=== PATIENT | female | born 1955 | race Caucasian/White ===

== ENCOUNTER 2016-08-02 00:06 | Emergency (ER) | payer OTHER ==
[~2016-08-02] VITALS: Ht 157.5 cm; Wt 48.5 kg
[~2016-08-02 00:06] MED LIST: AUGMENTIN 500-1 EACH ORAL; IBUPROFEN400 MG ORAL; IBUPROFEN600 MG ORAL; NORCO 5-325 TA1 EACH ORAL; ZYRTEC10 MG ORAL
[2016-08-02] MEDS ORDERED: ROBAXIN-750750 MG PO (00:29)
[2016-08-02] MEDS ORDERED: CYCLOBENZAPRINE10 MG ORAL (00:29)
[2016-08-02] MEDS ORDERED: IBUPROFEN600 MG ORAL (00:29)
[2016-08-02] MEDS ORDERED: Methocarbamol 750mg tab ORAL ONE (00:30)
[2016-08-02] MEDS ORDERED: Ketorolac 60mg Inj IM ONE (00:30)
[2016-08-02 00:38] VITALS: BP 132/90
[2016-08-02 00:50] LABS: APPEARANCE,URINE CLEAR; KETONES,URINE NEGATIVE (NEGATIVE); LEUKOCYTE ESTERASE ,URINE 1+ (NEGATIVE); NITRITE,URINE NEGATIVE (NEGATIVE); PH,URINE 6 (4.5-8.0); PROTEIN,URINE NEGATIVE (NEGATIVE); UROBILINOGEN,URINE NORMAL MG/DL (0.0-1.0)
[2016-08-02 01:38] LABS: BACTERIA,URINE FEW /HPF; SQUAMOUS EPITHELIAL CELL,UR FEW /LPF (NONE/OCC); TRANSITIONAL EPI CELLS,URINE FEW /LPF
--- NOTE | 2016-08-02 04:58 | Emergency Room Report ---
History of Present Illness General Chief Complaint: Back Pain-No Injury Source: Patient Present Illness HPI 60YO F with 2-3 days of upper/lower left back pain that started after patient "lifted and moved by med." Taking OTC tylenol without improvement. Pain worse with movement, better lying flat. Denies assoc lower extremity weakness, urinary /fecal incontinence, fever/chills, dysuria, history of IVDU or malignancy. Denies urinary complaints. Allergies: Coded Allergies: Dust (Verified Allergy, Unknown, 08/02/16) PERFUME (Verified Allergy, Unknown, 08/02/16) Uncoded Allergies: PEANUTS (Allergy, Unknown, 08/02/16) Patient History Past Medical History: none Past Surgical History: none Pertinent Family History: none Social History: Denies: alcohol use, drug use, smoking Now: No Immunizations: UTD Reviewed Nursing Documentation: PMH: Agreed, PSxH: Agreed Nursing Documentation-PMH Past Medical History: No Stated History Review of Systems All Other Systems: negative except mentioned in HPI Physical Exam Vital Signs Date Time Temp Pulse Resp B/P Pulse Ox O2 Delivery O2 Flow Rate FiO2 08/02/16 00:07 97.5 75 16 132/90 100 Room Air Sp02 EP Interpretation: reviewed, normal General Appearance: normal inspection, well appearing, no apparent distress, alert Head: normocephalic, atraumatic Eyes: bilateral eye EOMI, bilateral eye PERRL ENT: normal ENT inspection, hearing grossly normal, normal voice Neck: normal inspection, full range of motion, supple, no bony tend Respiratory: normal inspection, lungs clear, normal breath sounds, no respiratory distress, no retraction, no wheezing Cardiovascular #1: regular rate, rhythm, no edema Gastrointestinal: normal inspection, normal bowel sounds, non tender, soft, no guarding, no hernia Genitourinary: no CVA tenderness Musculoskeletal: normal inspection, back normal, normal range of motion, Cleopatra' s Sign negative, other - Lower/upper left paravertebral area with spasm, tightness. No midline ttp or masses Neurologic: normal inspection, alert, oriented x3, responsive, inspector automatic typewriter III-XII nml as tested, motor strength/tone normal, speech normal Psychiatric: normal inspection, judgement/insight normal, mood/affect normal Skin: normal inspection, normal color, no rash Medical Decision Making Diagnostic Impression: Primary Impression: Back pain Qualified Codes: M54.5 - Low back pain ER Course A: low suspicion for cord compression given well appearance, left upper/lower paravertebral ttp, no focal neuro deficits, absence of midline ttp/masses and pain worse with movement with known exacerbating activity Analgesia provided in ED Rx Ibuprofen, Robaxin, ICE/HEAT, PMD followup Last Vital Signs Date Time Temp Pulse Resp B/P Pulse Ox O2 Delivery O2 Flow Rate FiO2 08/02/16 00:38 97.5 75 16 132/90 100 Room Air Status: improved Disposition: HOME, SELF-CARE Condition: Improved Scripts Cyclobenzaprine Hcl* (FLEXERIL*) 10 Mg Tablet 10 MG ORAL QHS Y for back pain, #30 TAB Prov: YARELI MAHONEY M.D. 08/02/16 Methocarbamol* (ROBAXIN-750*) 750 Mg Tablet 750 MG PO TID for back pain, #30 TAB 0 Refills Prov: YARELI MAHONEY M.D. 08/02/16 Ibuprofen* (MOTRIN*) 600 Mg Tablet 600 MG ORAL THREE TIMES A DAY for back pain for 7 Days, #30 TAB 0 Refills Prov: YARELI MAHONEY M.D. 08/02/16 Referrals: NOT CHOSEN [facility]/,REFERRING Patient Instructions: Back Pain, Adult Additional Instructions: - Take ibuprofen with Robaxin every 8 hours with food for back pain - Follow up with your primary care doctor in 1 week if no improvement - At night, take 1 flexeril for back pain to help you sleep but DO NOT take flexeril during the day before driving YARELI MAHONEY M.D. Aug 02, 2016 04:58
== END 2016-08-02 00:40 | disposition home or self-care (01) ==
LOC: EMR 00:20
DX: M54.5 Low back pain (principal); Z91.010 Allergy to peanuts; Z91.048 Other nonmedicinal substance allergy status
CPT/HCPCS: 81003; 96372; 99284

== ENCOUNTER 2017-02-08 21:49 | Emergency (ER) | payer OTHER ==
[~2017-02-08] VITALS: Ht 157.5 cm; Wt 47.2 kg
[~2017-02-08 21:49] MED LIST changes: +CYCLOBENZAPRINE10 MG ORAL; +ROBAXIN-750750 MG PO
[2017-02-08 22:17] VITALS: BP 123/79
[2017-02-08] MEDS ORDERED: Tylenol #3 tab (300mg/30mg) ORAL ONE (22:30)
--- NOTE | 2017-02-08 22:39 | Emergency Room Report ---
History of Present Illness General Chief Complaint: Pain Source: Patient Present Illness HPI This is a 61-year-old female with no significant past medical history. She presents with chief complaint of headache in pain. Pain is over the mastoid area. His been on and off for the last couple weeks. No nausea no vomiting. Usually get better with ibuprofen. Never had any study. Never had this problem before. No weight loss. No focal deficit. Worse with palpation. Worse with certain movement. Pain is 8/10. Sharp in nature. Allergies: Coded Allergies: Dust (Verified Allergy, Unknown, 08/02/16) PERFUME (Verified Allergy, Unknown, 08/02/16) Uncoded Allergies: PEANUTS (Allergy, Unknown, 08/02/16) Patient History Past Medical History: see triage record, old chart reviewed Past Surgical History: other Pertinent Family History: none Social History: Denies: smoking Now: No Immunizations: other Reviewed Nursing Documentation: PMH: Agreed, PSxH: Agreed Nursing Documentation-PMH Past Medical History: No Stated History Review of Systems Eye: Denies: eye pain, blurred vision ENT: Denies: ear pain, nose congestion, throat swelling Respiratory: Denies: cough, shortness of breath Cardiovascular: Denies: chest pain, palpitations Gastrointestinal: Denies: abdominal pain, diarrhea, nausea, vomiting Musculoskeletal: Denies: back pain, joint pain Skin: Denies: rash Neurological: Reports: headache, Denies: numbness Endocrine: Denies: increased thirst, increased urine Hematologic/Lymphatic: Denies: easy bruising All Other Systems: negative except mentioned in HPI Physical Exam Vital Signs Date Time Temp Pulse Resp B/P (MAP) Pulse Ox O2 Delivery O2 Flow Rate FiO2 02/08/17 22:00 97.9 69 18 123/79 99 Room Air vitals normal Sp02 EP Interpretation: reviewed, normal General Appearance: well appearing, no apparent distress, alert Head: normocephalic, atraumatic, other - Tenderness over the left mastoid area and occiput. No mass. No redness. Eyes: bilateral eye PERRL, bilateral eye EOMI ENT: hearing grossly normal, normal pharynx Neck: full range of motion, supple, no meningismus Respiratory: chest non-tender, lungs clear, normal breath sounds Cardiovascular #1: regular rate, rhythm, no murmur Gastrointestinal: normal bowel sounds, non tender, no mass, no organomegaly, no bruit, non-distended Musculoskeletal: back normal, gait/station normal, normal range of motion Psychiatric: mood/affect normal Skin: warm/dry Medical Decision Making Diagnostic Impression: Primary Impression: Headache Qualified Codes: R51 - Headache ER Course Patient with headache. No evidence of abscess or infection. CT negative for bleed or fracture. No evidence of CVA. We'll discharge home. Last Vital Signs Date Time Temp Pulse Resp B/P (MAP) Pulse Ox O2 Delivery O2 Flow Rate FiO2 02/08/17 22:17 97.9 69 18 123/79 99 Room Air Status: improved Disposition: HOME, SELF-CARE Condition: Stable Scripts Tramadol Hcl* (ULTRAM*) 50 Mg Tablet 50 MG ORAL BID Y for For Pain, #20 TAB 0 Refills Prov: GISELLE BAHENA M.D. 02/08/17 Referrals: [facility],REFERRING (PCP) Additional Instructions: Followup with your DrStephy in 7 days. Return if worse. GISELLE BAHENA M.D. Feb 08, 2017 22:39
[2017-02-08] MEDS ORDERED: TRAMADOL HCL50 MG ORAL (23:00)
[2017-02-08 23:07] VITALS: BP 123/79
--- NOTE | 2017-02-09 09:15 | Diagnostic Imaging Report ---
Indication: PAIN attain Technique: Continuous helical CT scanning of the head was performed without intravenous contrast material. Axial and coronal 5 mm sections were generated. Radiation dose was minimized using automated exposure control Dose: Total Dose Length Product - DLP [address] Dose Index - CTDIvol(s) 70.38 mGy. Comparison: None Findings: The ventricular system is normal in size and configuration. There is no shift of midline structures. No abnormal extra-axial fluid collections are noted. There is no evidence of intracerebral bleeding. No other abnormal high or low density areas are noted within the brain. The calvarium is intact. The visualized orbits and sinuses are unremarkable. The mastoids are clear Impression: Normal CT scan of the head without contrast material. This agrees with the preliminary interpretation provided overnight by [facility] teleradiology service. The CT scanner at [facility] is accredited by the [employer] and the scans are performed using protocols designed to limit radiation exposure to as low as reasonably achievable to attain images of sufficient resolution adequate for diagnostic evaluation.
== END 2017-02-08 23:07 | disposition home or self-care (01) ==
LOC: EMR 22:19
DX: R51 Headache (principal); Z91.010 Allergy to peanuts; Z91.09 Other allergy status, other than to drugs and biological substances
CPT/HCPCS: 70450; 99283

== ENCOUNTER 2020-03-03 20:09 | Emergency (ER) | payer OTHER ==
[~2020-03-03] VITALS: Ht 157.5 cm; Wt 48.1 kg
[~2020-03-03 20:09] MED LIST changes: +TRAMADOL HCL50 MG ORAL
--- NOTE | 2020-03-03 20:24 | NUR ---
ED Nurse Note: pt walked into the ED from home s/p mechanical fall yesterday, pt now reports pain on right elbow and left knee. Denies head trauma, denies numbness, tingling. Pt is awake alert and oriented. Vitals stable as documented.
[2020-03-03 20:26] VITALS: BP 129/79
--- NOTE | 2020-03-03 20:28 | Emergency Room Report ---
History of Present Illness General Chief Complaint: Multiple Trauma/Fall Source: Patient Present Illness HPI Disclaimer: Please note that this report is being documented using DRAGON technology. This can lead to erroneous entry secondary to incorrect interpretation by the dictating instrument. HPI: 64-year-old [id number] female presents for evaluation of elbow and forearm pain after a fall. Yesterday she tripped and fell on the sidewalk falling onto her right elbow. Noted pain and swelling and limited range of motion in the right elbow. Notes some tenseness in the right shoulder but no pain and full range of motion. No head or neck injury. Denies pain in the wrist or hand. Does not take anticoagulants. She fell on her left knee but states this is all better now. Took Tylenol. No other injuries reported. PMH: Reviewed PSH: Reviewed Allergies: Reviewed Social Hx: Reviewed Allergies: Coded Allergies: Dust (Verified Allergy, Unknown, 08/02/16) PERFUME (Verified Allergy, Unknown, 08/02/16) Uncoded Allergies: PEANUTS (Allergy, Unknown, 08/02/16) COVID-19 Screening Contact w/high risk pt: No Experienced COVID-19 symptoms?: No COVID-19 Testing performed DICTAPHONE OPERATOR: No Nursing Documentation-PMH Past Medical History: No Stated History Review of Systems All Other Systems: negative except mentioned in HPI Physical Exam Vital Signs Date Time Temp Pulse Resp B/P (MAP) Pulse Ox O2 Delivery O2 Flow Rate FiO2 03/03/20 20:18 98.4 60 16 129/79 (96) 98 Room Air General: Awake and alert, no acute distress HEENT: NC/AT. EOMI. Resp: Normal work of breathing Skin: Intact. No abrasions, laceration or rash over the exposed skin MSK: Normal tone and bulk. Moving all extremities. There is tenderness palpation of moderate edema over the proximal ulna and elbow. Limited range of motion though still able to flex and extend to some degree. No tenderness in the wrist, hand or digits. No tenderness anatomic snuffbox. Full range of motion of the left shoulder. Mild tenderness palpation over the trapezius and right paraspinal regions in the cervical spine but no midline tenderness in the cervical spine or thoracic spine. Neuro: Awake and alert. Mentating appropriately Medical Decision Making Diagnostic Impression: Primary Impression: Elbow contusion ER Course There is a 64-year-old female presenting for evaluation of right elbow pain and swelling after a fall from standing yesterday. There was no head injury or loss of consciousness but on concern for fracture and x-rays were obtained. No obvious fracture, dislocation identified. No posterior fat pad or other concerning findings. She has small abrasion over the elbow that was cleaned and bandaged already. Tetanus was updated 2 years ago. Right arm placed in sling for comfort. Also appears she suffered a strain of the trapezius on the right side. No indication for acute imaging of the head or spine at this time. She is well-appearing stable for outpatient follow-up. Prescribed lidocaine patches, Motrin, Robaxin. She will follow-up with PMD and return with new or worsening symptoms. She understands and agrees with this treatment plan. Other X-Ray Diagnostic Results Other X-Ray Diagnostic Results #1: X-Ray ordered: Right elbow # of Views/Limited Vs Complete: 3 View Indication: Pain EP Interpretation: Yes Interpretation: no dislocation, no fractures, other - Soft tissue swelling, no obvious fracture, no dislocation, no fat pad sign Impression: Other - Soft tissue swelling Electronically Signed by: Electronically signed by Dr. Akbar Matt Other X-Ray Diagnostic Results #2: X-Ray ordered: Right forearm # of Views/Limited Vs Complete: Complete Indication: Pain EP Interpretation: Yes Interpretation: no dislocation, no fractures, other - Soft tissue swelling Impression: Other - Soft tissue swelling elbow, no fracture Electronically Signed by: Electronically signed by Dr. Akbar Matt Last Vital Signs Date Time Temp Pulse Resp B/P (MAP) Pulse Ox O2 Delivery O2 Flow Rate FiO2 03/03/20 20:18 98.4 60 16 129/79 (96) 98 Room Air Disposition: HOME, SELF-CARE Condition: Stable Scripts Lidocaine Patch* (Lidoderm Patch*) 1 Each Adh..patch 1 PATCH TOPIC DAILY, #10 PATCH 0 Refills Patch(es) may remain in place for up to 12 hours in any 24-hour period. Prov: Akbar Matt MD 03/03/20 Ibuprofen* (MOTRIN*) 600 Mg Tablet 600 MG ORAL Q6H PRN for For Pain, #30 TAB 0 Refills Prov: Akbar Matt MD 03/03/20 Methocarbamol* (ROBAXIN-750*) 750 Mg Tablet 750 MG PO TID for back pain, #30 TAB 0 Refills Prov: Akbar Matt MD 03/03/20 Akbar Matt MD Mar 03, 2020 20:28
--- NOTE | 2020-03-03 20:35 | NUR ---
ED Nurse Note: rd lab technician at bedside performing arm/knee xray.
[2020-03-03] MEDS ORDERED: ROBAXIN-750750 MG PO (20:56)
[2020-03-03] MEDS ORDERED: IBUPROFEN600 M1 ORAL (20:56)
[2020-03-03] MEDS ORDERED: LIDODERM700 M1 TOPIC (20:56)
--- NOTE | 2020-03-03 21:08 | NUR ---
ER DISCHARGE NOTE: Patient is cleared to be discharged per ERMD. Placed arm sling on pt per EDMD order. pt is aox4, on room air, with stable vital signs. pt was given dc and electronic prescriptions with f/u instructions with PMD, pt was able to verbalize understanding, pt id band removed. pt is able to ambulate with steady gait. pt took all belongings.
[2020-03-03 21:14] VITALS: BP 132/84
--- NOTE | 2020-03-04 06:20 | Diagnostic Imaging Report ---
EXAM: XR Right Elbow Complete, 3 or More Views CLINICAL HISTORY: INJ TECHNIQUE: Frontal, lateral and oblique views of the right elbow. COMPARISON: No relevant prior studies available. FINDINGS: Bones/joints: Mild spurring of the conoid process. Subtle linear calcification adjacent to the olecranon, likely an enthesophyte of the triceps tendon. No acute fracture. No dislocation. Soft tissues: Soft tissue swelling of the proximal dorsal forearm. IMPRESSION: Proximal dorsal forearm soft tissue swelling without acute osseous abnormality.
--- NOTE | 2020-03-04 06:20 | Diagnostic Imaging Report ---
EXAM: XR Right Forearm, 2 Views CLINICAL HISTORY: INJ TECHNIQUE: Frontal and lateral views of the right forearm. COMPARISON: Elbow radiographs dated today. FINDINGS: Bones/joints: Coronoid process spurring. Linear calcification adjacent to the olecranon, likely an enthesophyte of the triceps tendon. No acute fracture. No dislocation. Soft tissues: Prominent dorsal forearm soft tissue swelling is noted within the proximal and mid aspect. IMPRESSION: Dorsal forearm soft tissue swelling without acute osseous abnormality.
== END 2020-03-03 21:14 | disposition home or self-care (01) ==
LOC: EMR 20:29
DX: S50.01XA Contusion of right elbow, initial encounter (principal); W01.0XXA Fall on same level from slipping, tripping and stumbling without subsequent striking against object, initial encounter; Y92.9 Unspecified place or not applicable; Z91.010 Allergy to peanuts; M25.511 Pain in right shoulder
CPT/HCPCS: 99284